=== PATIENT | female | born 1980 | race Caucasian/White ===

== ENCOUNTER → 2021-06-20 14:50 | Outpatient (CLI) | payer OTHER, SELFPAY | PROVIDERS: Referring Provider Physician Assistant; Visit Provider Physician Assistant | DX: R30.0 Dysuria (principal) | CPT/HCPCS: 87086 ==

== ENCOUNTER → 2023-05-25 12:58 | Outpatient (CLI) | payer OTHER, SELFPAY ==
[2023-05-25 20:25] LABS: Add Manual Diff / Slide Review NO; Basophils Absolute Auto 0 /uL (0-100); Basophils Percent Auto 0.4 % (0-2); Eosinophils Absolute Auto 100 /uL (0-450); Eosinophils Percent Auto 1.2 % (2-4); Hematocrit 39.6 % (36-46); Hemoglobin 13.5 g/dL (12.0-16.0); Lymphocytes Absolute Auto 1500 /uL (1100-4500); Mean Corpuscular HGB Conc 34.2 % (30-36); Mean Corpuscular Hemoglobin 31.3 PG (26-34); Mean Corpuscular Volume 91.4 fL (80-100); Monocytes Absolute Auto 600 /uL (0-900); Monocytes Percent Auto 11.6 % (3-14); Neutrophils Absolute Auto 3200 /uL (1500-7000); Neutrophils Percent Auto 58.8 % (50-75); Platelet Count 272 X10^3/uL (150-400); Red Blood Cell Count 4.33 X10^6/uL (4.0-5.2); Red Cell Distribution Width 13.2 % (11.6-14.8); White Blood Cell Count 5.5 X10^3/uL (4.5-11.0)
[2023-05-25 20:31] LABS: Alanine Aminotransferase 21 IU/L (<35); Albumin 4.3 g/dL (3.5-5.0); Albumin Globulin Ratio 1.6 (1.0-2.8); Alkaline Phosphatase 52 U/L (38-126); Aspartate Aminotransferase 30 IU/L (14-36); BUN Creatinine Ratio 14.5 (6-22); Bilirubin Total 0.4 mg/dL (0.2-1.3); Blood Urea Nitrogen 11 mg/dL (7-17); Calcium 9.4 mg/dL (8.4-10.2); Carbon Dioxide 29 mmol/L (22-32); Chloride 101 mmol/L (98-107); Estimated Glomerular Filt Rate > 60 mL/min (>60); Globulin 2.7 g/dL (1.7-4.1); Glucose 92 mg/dL (70-100); HEMOLYSIS < 15 (0-50); Potassium 3.9 mmol/L (3.4-5.1); Sodium 136 mmol/L (137-145)
== END ==
PROVIDERS: PCP Physician Assistant; Visit Provider Physician Assistant
DX: Z79.899 Other long term (current) drug therapy (principal)
CPT/HCPCS: 80053; 85025

== ENCOUNTER → 2023-07-21 09:21 | Outpatient (CLI) | payer OTHER, SELFPAY ==
[2023-07-21 20:14] LABS: Cholesterol 228 mg/dL (140-199); HDL Cholesterol 90 mg/dL (40-60); LDL Cholesterol Calculated 119 mg/dL (<100); Triglycerides 94 mg/dL (35-150)
== END ==
PROVIDERS: PCP Family Medicine; Visit Provider Family Medicine
DX: Z13.220 Encounter for screening for lipoid disorders (principal)
CPT/HCPCS: 80061